=== PATIENT | female | born 1985 ===

== ENCOUNTER 2017-09-24 03:00 | Emergency (ER) | payer SELFPAY ==
[2017-09-24 03:28] VITALS: O2SAT 96
[2017-09-24] MEDS ORDERED: Albuterol-Ipratrop 3 mg / 0.5 (3 ml) UD INH STA (03:43)
--- NOTE | 2017-09-24 05:13 | ED PDOC ---
HPI: CCC, URI, Sore Throat Time Seen by Provider: 09/24/17 03:38 Chief Complaint (Nursing): Chest Pain Chief Complaint (Provider): Cough History Per: Patient History/Exam Limitations: no limitations Onset/Duration Of Symptoms: Days (x5) Current Symptoms Are (Timing): Still Present Additional Complaint(s): 32 y/o female with no significant pmhx, who presents to the ED for evaluation of cough and nasal congestion x5 days. Patient reports 5 days of worsening cough associated with chest tightness and nasal congestion. Patient describes cough as dry and denies associated fever. Patient states tonight she was coughing so much she was too uncomfortable to sleep, prompting her to present to the ED. PMD: None provided Past Medical History Reviewed: Historical Data, Nursing Documentation, Vital Signs Vital Signs: Last Vital Signs Temp 97.6 F 09/24/17 03:19 Pulse 80 09/24/17 03:33 Resp 17 09/24/17 03:19 BP 110/71 09/24/17 03:19 Pulse Ox 96 09/24/17 03:19 - Medical History PMH: No Chronic Diseases - Surgical History Surgical History: No Surg Hx - Family History Family History: States: Unknown Family Hx - Social History Current smoker - smoking cessation education provided: No Alcohol: None Drugs: Denies - Home Medications Home Medications: Ambulatory Orders Medication Instructions Recorded Albuterol Sulfate [Proair Hfa] 0.09 mg IH Q6 PRN #1 inh 09/24/17 Benzonatate [Tessalon Perle] 100 mg PO TID PRN #15 capsule 09/24/17 predniSONE [predniSONE Tab] 60 mg PO QAM #12 tab 09/24/17 - Allergies Allergies/Adverse Reactions: Allergies Allergy/AdvReac Type Severity Reaction Status Date / Time No Known Allergies Allergy Verified 09/24/17 03:28 Review of Systems ROS Statement: Except As Marked, All Systems Reviewed And Found Negative Constitutional: Negative for: Fever ENT: Positive for: Nose Congestion Cardiovascular: Positive for: Other (chest tightness) Respiratory: Positive for: Cough Physical Exam - Reviewed Nursing Documentation Reviewed: Yes Vital Signs Reviewed: Yes - Physical Exam Appears: Positive for: Non-toxic, No Acute Distress, Uncomfortable Head Exam: Positive for: ATRAUMATIC, NORMAL INSPECTION, NORMOCEPHALIC Skin: Positive for: Normal Color, Warm, Dry. Negative for: Rash Eye Exam: Positive for: EOMI, Normal appearance, PERRL Neck: Positive for: Normal, Painless ROM, Supple Cardiovascular/Chest: Positive for: Regular Rate, Rhythm. Negative for: Murmur Respiratory: Positive for: Wheezing (mild expiratory wheezing), Other ( decreased air entry at bilateral bases) Gastrointestinal/Abdominal: Positive for: Normal Exam, Soft. Negative for: Tenderness Back: Positive for: Normal Inspection. Negative for: L CVA Tenderness, R CVA Tenderness, Vertebral Tenderness Extremity: Positive for: Normal ROM. Negative for: Pedal Edema, Deformity Neurologic/Psych: Positive for: Alert, Oriented. Negative for: Motor/Sensory Deficits - ECG O2 Sat by Pulse Oximetry: 96 (RA) Pulse Ox Interpretation: Normal Medical Decision Making Medical Decision Makin:34 Initial Impression: 32 y/o female with allergic bronchitis Initial Plan: --EKG --Urine --CXR --Duoneb 9ml INH --Prednisone 60mg PO --Peak flow treatment --Reevaluation 04:33 CXR shows no acute abnormalities. Patient reports improvement of symptoms after duoneb and Prednisone. Patient stable upon discharge. Scribe Attestation: Documented by Ernie Chen, acting as a scribe for Josh Gerber MD. Provider Scribe Attestation: All medical record entries made by the Scribe were at my direction and personally dictated by me. I have reviewed the chart and agree that the record accurately reflects my personal performance of the history, physical exam, medical decision making, and the department course for this patient. I have also personally directed, reviewed, and agree with the discharge instructions and disposition. Disposition - Clinical Impression Clinical Impression: Allergic bronchitis - Patient ED Disposition Is Patient to be Admitted: No Counseled Patient/Family Regarding: Studies Performed, Diagnosis, Need For Followup, Rx Given - Disposition Disposition: Routine/Home Disposition Time: 04:33 Condition: STABLE Prescriptions: Albuterol Sulfate [Proair Hfa] 0.09 mg IH Q6 PRN #1 inh PRN Reason: Shortness Of Breath Benzonatate [Tessalon Perle] 100 mg PO TID PRN #15 capsule PRN Reason: Cough predniSONE [predniSONE Tab] 60 mg PO QAM #12 tab Instructions: Seasonal Allergies (DC) Forms: [employer] (Thai)
[2017-09-24 05:17] VITALS: BP 112/59; PULSE 86; RESP 16; TEMP 98.9
--- NOTE | 2017-09-24 08:36 | RAD ---
HISTORY: COMPARISON: No prior. TECHNIQUE: Chest PA and lateral FINDINGS: LINES AND TUBES: None. LUNG AND PLEURA: The lungs are well inflated. There is confluent airspace disease in the right lower lobe. HEART AND MEDIASTINUM: The heart is not enlarged. The hilar and mediastinal contours are within normal limits. SKELETAL STRUCTURES: The bony structures are within normal limits for the patient's age. VISUALIZED UPPER ABDOMEN: Normal. OTHER FINDINGS: None. IMPRESSION: Confluent airspace disease in the right lower lobe may represent subsegmental atelectasis however superimposed pneumonia cannot be excluded. Follow-up after medical management is recommended to ensure complete resolution.
--- NOTE | 2017-09-24 10:49 | CARD ---
APPROVED REPORT EKG Measurement Heart [id number] <Conclusion> Normal sinus rhythm Normal ECG
== END 2017-09-24 05:24 | disposition home or self-care (01) ==
LOC: H.ER 03:00
DX: J45.909 Unspecified asthma, uncomplicated (principal)